=== PATIENT | male | born 1970 ===

== ENCOUNTER 2020-11-19 13:14 | Emergency (ER) | payer OTHER ==
[2020-11-19] MEDS ORDERED: Aspirin 81 MG Tab.Chew PO ONE (13:46)
[2020-11-19] MEDS ORDERED: Sodium Chloride 0.9% 10 ML Syringe FLUSH PRN (13:46)
--- NOTE | 2020-11-19 14:16 | CR ---
Addendum: Additional view was obtained of the chest. This additional view shows a small nodule within the right upper lung which overlies a monitor lead. This nodule measures approximately 3-4 mm. Recommend repeat chest x-ray in 6 months to further evaluate. 6 month exam would occur in May,. --- Addendum1 above dictated on [11/20/2020 10:08] by [Loretta Phan, Greg Castellano] --- --- Addendum1 above signed on [11/20/2020 10:25] by [Loretta Phan, Greg Castellano] --- --- Original report below dictated on [11/19/2020 14:02] by [Loretta Phan, Greg Castellano] --- --- Original report below signed on [11/19/2020 14:13] by [Loretta Phan, Greg Castellano] --- Chest: Portable view of the chest was obtained. Comparison: Prior chest x-ray of 10/06/19. Heart size and mediastinum are normal. Lungs are clear with no acute parenchymal change. No acute osseous abnormality is appreciated. Impression: 1. Nothing acute is seen on portable chest x-ray. Diagnostic code #1 --- Addendum1 signed ---
--- NOTE | 2020-11-19 15:11 | EDM.PDOC ---
ED HPI GENERAL MEDICAL PROBLEM - General Chief Complaint: Chest Pain Stated Complaint: CHEST PAIN Time Seen by Provider: 11/19/20 13:24 Source of Information: Reports: Patient History Limitations: Reports: No Limitations - History of Present Illness INITIAL COMMENTS - FREE TEXT/NARRATIVE: The patient presents with left sided chest pain. This started about a week ago. The pain comes and goes and it is worse with taking a deep breath. He has some shortness of breath at times. He has no fever, cough, abdominal pain, or vomiting. He does have some chills at times and nausea. He has no history of heart disease. He does not smoke. He has not history of hypertension. He said about a year ago his bad cholesterol was a little high. He did not go back and get it checke. Onset: Gradual Duration: Week(s): (1) Quality: Reports: Sharp Severity: Moderate Improves with: Reports: None Worsens with: Reports: None Associated Symptoms: Reports: Chest Pain, Fever/Chills, Nausea/Vomiting, Shortness of Breath. Denies: Cough, Headaches Left Chest Pain Score (Numeric/FACES): 5 - Related Data Allergies Allergy/AdvReac Type Severity Reaction Status Date / Time No Known Allergies Allergy Verified 11/19/20 13:24 Home Meds: Home Meds Fexofenadine/Pseudoephedrine [Chari-D 24 Hour Tablet] 1 each PO DAILY 11/19/20 [History] Past Medical History HEENT History: Reports: Allergic Rhinitis - Past Surgical History GI Surgical History: Reports: Appendectomy Social & Family History - Tobacco Use Tobacco Use Status *Q: Never Tobacco User - Recreational Drug Use Recreational Drug Use: No ED ROS GENERAL - Review of Systems Review Of Systems: See Below Constitutional: Reports: Chills. Denies: Fever HEENT: Reports: No Symptoms Respiratory: Reports: Shortness of Breath. Denies: Cough Cardiovascular: Reports: Chest Pain Endocrine: Reports: No Symptoms GI/Abdominal: Reports: Abdominal Pain, Nausea. Denies: Diarrhea, Vomiting : Reports: No Symptoms Musculoskeletal: Reports: No Symptoms ED EXAM, GENERAL - Physical Exam Exam: See Below Exam Limited By: No Limitations General Appearance: Alert, No Apparent Distress Ears: Normal External Exam Nose: Normal Inspection Head: Atraumatic, Normocephalic Neck: Normal Inspection Respiratory/Chest: No Respiratory Distress, Lungs Clear, Normal Breath Sounds Cardiovascular: Regular Rate, Rhythm, No Edema, No Murmur GI/Abdominal: Soft, Non-Tender, No Organomegaly, No Mass Back Exam: Normal Inspection Extremities: Normal Inspection #1 Interpretation EKG Date: 11/19/20 Time: 13:20 Rhythm: NSR Rate (Beats/Min): 77 [place]: Normal P-Wave: Present QRS: Normal ST-T: Normal QT: Normal Course - Vital Signs Last Recorded V/S: Last Vital Signs Temp 97.2 F 11/19/20 13:22 Pulse 84 11/19/20 13:22 Resp 14 11/19/20 13:22 BP 159/102 H 11/19/20 13:22 Pulse Ox 98 11/19/20 13:22 - Orders/Labs/Meds Orders: Active Orders 24 hr Category Date Time Status Cardiac Monitoring [RC] . DIRECTED Care 11/19/20 13:46 Active EKG 12 Lead [EKG Documentation Completion] [RC] STAT Care 11/19/20 13:34 Active Peripheral IV Care [RC] . DIRECTED Care 11/19/20 13:47 Active Sodium Chloride 0.9% [Saline Flush] Med 11/19/20 13:46 Active 10 ml FLUSH ASDIRECTED PRN Peripheral IV Insertion Adult [OM.PC] Stat Oth 11/19/20 13:46 Ordered Medication Orders Sodium Chloride (Sodium Chloride 0.9% 10 Ml Syringe) 10 ml FLUSH ASDIRECTED PRN PRN Reason: Keep Vein Open Last Admin: 11/19/20 14:06 Dose: 10 ml Documented by: DENILSON Labs: Laboratory Tests 11/19/20 11/19/20 11/19/20 Range/Units 13:30 13:30 13:30 WBC 6.87 (4.23-9.07) K/mm3 RBC 5.47 (4.63-6.08) M/mm3 Hgb 15.4 (13.7-17.5) gm/dl Hct 45.2 (40.1-51.0) % MCV 82.6 (79.0-92.2) fl MCH 28.2 (25.7-32.2) pg MCHC 34.1 (32.2-35.5) g/dl RDW Std Deviation 38.1 (35.1-43.9) fL Plt Count 251 (163-337) K/mm3 MPV 10.3 (9.4-12.3) fl Neut % (Auto) 52.8 (34.0-67.9) % Lymph % (Auto) 37.0 (21.8-53.1) % Harlan % (Auto) 8.3 (5.3-12.2) % Eos % (Auto) 1.2 (0.8-7.0) Baso % (Auto) 0.6 (0.1-1.2) % Neut # (Auto) 3.63 (1.78-5.38) K/mm3 Lymph # (Auto) 2.54 (1.32-3.57) K/mm3 Harlan # (Auto) 0.57 (0.30-0.82) K/mm3 Eos # (Auto) 0.08 (0.04-0.54) K/mm3 Baso # (Auto) 0.04 (0.01-0.08) K/mm3 D-Dimer, Quantitative < 0.19 L (0.19-0.50) mg/L Sodium 140 (136-145) mEq/L Potassium 3.3 L (3.5-5.1) mEq/L Chloride 103 (98-107) mEq/L Carbon Dioxide 26 (21-32) mEq/L Anion Gap 14.3 (5-15) BUN 16 (7-18) mg/dL Creatinine 1.3 (0.7-1.3) mg/dL Est Cr Clr Drug Dosing 70.97 mL/min Estimated GFR (MDRD) 59 (>60) mL/min BUN/Creatinine Ratio 12.3 L (14-18) Glucose 111 H (74-106) mg/dL Calcium 8.9 (8.5-10.1) mg/dL Total Bilirubin 0.3 (0.2-1.0) mg/dL AST 21 (15-37) U/L ALT 37 (16-63) U/L Alkaline Phosphatase 65 (46-116) U/L Troponin I < 0.017 (0.00-0.056) ng/mL Total Protein 8.1 (6.4-8.2) g/dl Albumin 4.2 (3.4-5.0) g/dl Globulin 3.9 gm/dL Albumin/Globulin Ratio 1.1 (1-2) Meds: Medications Generic Name Dose Route Start Last Admin Trade Name Glenny PRN Reason Stop Dose Admin Sodium Chloride 10 ml 11/19/20 13:46 11/19/20 14:06 Sodium Chloride 0.9% 10 Ml Syringe FLUSH 10 ml ASDIRECTED PRN Administration Keep Vein Open Discontinued Medications Generic Name Dose Route Start Last Admin Trade Name Glenny PRN Reason Stop Dose Admin Aspirin 324 mg 11/19/20 13:46 11/19/20 14:05 Aspirin 81 Mg Tab.Chew PO 11/19/20 13:47 324 mg ONETIME ONE Administration - Re-Assessments/Exams Free Text/Narrative Re-Assessment/Exam: 11/19/20 15:17 I ordered an IV saline lock, EKG, CXR labs and aspirin. His EKG shows a NSR with no acute changes. His CXR looks good. His CBC and CMP look good. His troponin is negative. His D-dimer is negative. 11/19/20 15:23 It appears he is not having a heart attack. I feel this is pleurisy. I will have him take some antiinflammatories. Departure - Departure Time of Disposition: 15:25 Disposition: Home, Self-Care 01 Condition: Good Clinical Impression: Atypical chest pain, Pleurisy Referrals: Bella Colón PA-C [Primary Care Provider] - 1 Week Forms: ED Department Discharge Additional Instructions: Take motrin or aleve for pain. Follow up with Bella Colón within a week. Please return if you are worse. Sepsis Event Note (ED) - Evaluation Sepsis Screening Result: No Definite Risk - Focused Exam Vital Signs: Vital Signs Temp Pulse Resp BP Pulse Ox 11/19/20 13:22 97.2 F 84 14 159/102 H 98 - My Orders Last 24 Hours: My Active Orders 11/19/20 13:34 EKG 12 Lead [EKG Documentation Completion] [RC] STAT 11/19/20 13:46 Cardiac Monitoring [RC] . DIRECTED Sodium Chloride 0.9% [Saline Flush] 10 ml FLUSH ASDIRECTED PRN Peripheral IV Insertion Adult [OM.PC] Stat 11/19/20 13:47 Peripheral IV Care [RC] . DIRECTED - Assessment/Plan Last 24 Hours: My Active Orders 11/19/20 13:34 EKG 12 Lead [EKG Documentation Completion] [RC] STAT 11/19/20 13:46 Cardiac Monitoring [RC] . DIRECTED Sodium Chloride 0.9% [Saline Flush] 10 ml FLUSH ASDIRECTED PRN Peripheral IV Insertion Adult [OM.PC] Stat 11/19/20 13:47 Peripheral IV Care [RC] . DIRECTED
== END 2020-11-19 15:35 | disposition home or self-care (01) ==
LOC: JD.ED 13:14
DX: R09.1 Pleurisy (principal); R07.89 Other chest pain; R06.02 Shortness of breath; R10.9 Unspecified abdominal pain; R11.0 Nausea
CPT/HCPCS: 36415; 71045; 80053; 84484; 85025; 85379; 93005; 99285; A9270; 93010; 99283